=== PATIENT | female | born 1980 | race African-American/Black ===

== ENCOUNTER 2020-04-03 11:51 | Emergency (ER) | payer OTHER ==
[~2020-04-03] VITALS: Ht 152.4 cm; Wt 56.7 kg
[2020-04-03 11:59] VITALS: BP 126/85
--- NOTE | 2020-04-03 12:24 | NUR ---
Patient discharged to home in stable condition. Written and verbal after care instructions given. Patient verbalizes understanding of instruction.
== END 2020-04-03 12:25 | disposition home or self-care (01) ==
LOC: ER 11:55
DX: S83.8X2A Sprain of other specified parts of left knee, initial encounter (principal); Z98.890 Other specified postprocedural states; W01.0XXA Fall on same level from slipping, tripping and stumbling without subsequent striking against object, initial encounter; Y93.E1 Activity, personal bathing and showering; Y92.89 Other specified places as the place of occurrence of the external cause; Y99.8 Other external cause status

== ENCOUNTER 2020-06-07 21:42 | Emergency (ER) | payer OTHER ==
[~2020-06-07] VITALS: Ht 152.4 cm; Wt 56.7 kg
[2020-06-07 21:48] VITALS: BP 138/87
--- NOTE | 2020-06-07 21:59 | NUR ---
PT CAME IN FOR MIDSTERNAL CHEST PAIN, DULL NON RADIATING AFTER WORKING OUT. PT STATES SHE WILL REFUSE EKG. DENIES ANY N/V, SOB. NOT IN RESPIRATORY DISTRESS. PT CONNECTED TO THE HAND PROFILER AND POX.
--- NOTE | 2020-06-07 22:07 | NUR ---
XRAY AT BEDSIDE FOR XRAY PROCEDURE.
--- NOTE | 2020-06-07 22:08 | NUR ---
PATIENT IS REFUSING BLOOD WORK AND IV. NOTIFIED. CURRENTLY AT BEDSIDE.
--- NOTE | 2020-06-07 22:11 | NUR ---
PT REFUSED EKG. STATED ''NO CONCERN OF HEART ISSUES''.
--- NOTE | 2020-06-07 22:46 | NUR ---
Patient discharged to home in stable condition. Written and verbal after care instructions given. Patient verbalizes understanding of instruction.pt. ambulatory with a steady gait
== END 2020-06-07 22:46 | disposition home or self-care (01) ==
LOC: ER 21:43
DX: R07.89 Other chest pain (principal); Z98.890 Other specified postprocedural states
CPT/HCPCS: 71046

== ENCOUNTER 2020-07-22 13:20 | Emergency (ER) | payer OTHER ==
[~2020-07-22] VITALS: Ht 152.4 cm; Wt 56.7 kg
[2020-07-22 13:20] VITALS: BP 119/76
--- NOTE | 2020-07-22 14:41 | NUR ---
CHAPERONED DR HAWKINS DURING EVALUATION
--- NOTE | 2020-07-22 16:26 | NUR ---
requested for cd copy. made md aware
== END 2020-07-22 16:55 | disposition home or self-care (01) ==
LOC: ER 13:28
DX: R07.89 Other chest pain (principal); Z98.890 Other specified postprocedural states
CPT/HCPCS: 71045-TC